=== PATIENT | female | born 2000 | race Caucasian/White ===

== ENCOUNTER 2020-09-01 11:35 | Emergency (ER) | payer OTHER ==
[~2020-09-01] VITALS: Ht 170.2 cm; Wt 77.3 kg
[2020-09-01 11:51] VITALS: TEMP 98.6
[2020-09-01 13:13] VITALS: BP 124/68; PULSE 73
== END 2020-09-01 13:20 | disposition home or self-care (01) ==
LOC: COL.ER 11:35
DX: S06.0X9A Concussion with loss of consciousness of unspecified duration, initial encounter (principal); S00.93XA Contusion of unspecified part of head, initial encounter; R55 Syncope and collapse; W10.8XXA Fall (on) (from) other stairs and steps, initial encounter; Y92.009 Unspecified place in unspecified non-institutional (private) residence as the place of occurrence of the external cause